=== PATIENT | male | born 1980 | race Caucasian/White ===

== ENCOUNTER 2016-07-28 16:41 | Inpatient (IN) | payer MEDICAID ==
[~2016-07-28] VITALS: Ht 172.7 cm; Wt 82.9 kg
[2016-07-28 17:32] LABS: BASOPHILS % (AUTO) 0.6 % (0.0-2.0); EOSINOPHILS % (AUTO) 0.9 % (1.0-6.0); HEMATOCRIT 48.8 % (41-53); HEMOGLOBIN 16.2 g/dL (13.5-17.5); LYMPHOCYTES % (AUTO) 20.9 % (22.0-44.0); MEAN CORPUSCULAR HEMOGLOBIN 30.1 pg (26.0-34.0); MEAN CORPUSCULAR HGB CONC 33.3 G/dL (31.0-37.0); MEAN CORPUSCULAR VOLUME 90 fL (80-100); MONOCYTES # (AUTO) 0.7 K/uL (0.1-1.0); MONOCYTES % (AUTO) 4.8 % (2.0-9.0); NEUTROPHILS # (AUTO) 10.3 K/uL (1.8-7.7); NEUTROPHILS % (AUTO) 72.8 % (40.0-70.0); PLATELET COUNT (AUTO) 174 K/uL (150-450); RED CELL DISTRIBUTION WIDTH 12.6 % (11.5-14.5); WHITE BLOOD COUNT (AUTO) 14.2 K/uL (4.5-11.0)
[2016-07-28 17:43] LABS: ANION GAP 10 mmol/L (8-16); CALCIUM, TOTAL 8.4 mg/dL (8.8-10.5); CARBON DIOXIDE 26 mmol/L (22-29); CHLORIDE 105 mmol/L (98-107); CREATININE 1.05 mg/dL (0.60-1.30); GLOMERULAR FILTR. RATE CALC > 60 mL/min (>60); POTASSIUM 4.2 mmol/L (3.5-5.1); SODIUM SERUM 141 mmol/L (136-145); UREA NITROGEN, BLOOD 9 mg/dL (7-18)
[2016-07-28 17:50] LABS: ALANINE AMINOTRANSFERASE 26 U/L (12-78); ALBUMIN 3.2 g/dL (3.4-5.0); ASPARTATE AMINOTRANSFERASE 22 U/L (15-37); BILIRUBIN,TOTAL 0.3 mg/dL (0.1-1.0)
[2016-07-28] MEDS ORDERED: DIVA500T35 PO (18:29)
[2016-07-28] MEDS ORDERED: VENL-193 PO (18:29)
[2016-07-28] MEDS ORDERED: BUSP15 PO (18:29)
[2016-07-28] MEDS ORDERED: MIRT15 PO (18:29)
[2016-07-28] MEDS ORDERED: VENL-67 PO (18:40)
[2016-07-28] MEDS ORDERED: ZOLPIDEM TARTRATE 10 MG TABLET PO PRN (20:30)
[2016-07-28] MEDS ORDERED: LORazepam 2 MG TABLET PO PRN (20:30)
[2016-07-28] MEDS ORDERED: HALOPERIDOL 5 MG TABLET PO PRN (20:30)
[2016-07-28 21:00] VITALS: BP 125/73
[2016-07-28] MEDS ORDERED: MIRTAZAPINE 15 MG TABLET PO SCH (21:00)
[2016-07-28] MEDS ORDERED: DIVALPROEX SODIUM 250 MG DR TABLET PO SCH (21:00)
[2016-07-28] MEDS: BusPIRone HCL 15 MG TABLET PO SCH (21:24)
[2016-07-29 01:40] VITALS: BP 132/66
[2016-07-29 07:30] VITALS: BP 115/71
[2016-07-29 08:00] VITALS: BP 115/71
[2016-07-29] MEDS ORDERED: VENLAFAXINE HCL 75 MG TABLET PO SCH (09:00)
[2016-07-29] MEDS: BusPIRone HCL 15 MG TABLET PO SCH ×2 (11:00→16:02)
[2016-07-29] MEDS ORDERED: MAGNESIUM HYDROXIDE SUSPENSION 30 ML UDCUP PO PRN (11:45)
[2016-07-29] MEDS ORDERED: HydrOXYzine PAMOATE 50 MG CAPSULE PO PRN (11:45)
[2016-07-29] MEDS ORDERED: TUBERCULIN, PURIFIED PROTEIN DERIVATIVE 5 TU/0.1 ML SYG ID ONE (11:45)
[2016-07-29] MEDS ORDERED: GuaiFENesin/D-METHORPHAN [SUGAR-FREE] 200-20MG/10 ML SYRUP UDCUP PO PRN (11:45)
[2016-07-29] MEDS ORDERED: PROMETHAZINE HCL 25 MG TABLET PO PRN (11:45)
[2016-07-29] MEDS ORDERED: MAG HYDROX/AL HYDROX/SIMETH ES 30 ML SUSPENSION UDCUP PO PRN (11:45)
[2016-07-29] MEDS ORDERED: LOPERAMIDE HCL 2 MG CAPSULE PO PRN (11:45)
[2016-07-29] MEDS: THIAMINE HCL 100 MG TABLET PO SCH (16:01)
[2016-07-29] MEDS: ACETAMINOPHEN 325 MG TABLET PO PRN (16:01)
[2016-07-29 16:03] VITALS: BP 105/63
[2016-07-29] MEDS: DIVALPROEX SODIUM 500 MG ER TABLET PO SCH (21:03)
[2016-07-29] MEDS: MIRTAZAPINE 15 MG TABLET PO SCH (21:03)
[2016-07-30 07:52] LABS: CREATINE KINASE, TOTAL 45 U/L (39-308); THYROID STIMULATING HORMONE 0.41 uIU/mL (0.36-3.74)
[2016-07-30 08:00] VITALS: BP 132/78
[2016-07-30] MEDS ORDERED: VENLAFAXINE HCL 75 MG ER CAPSULE PO SCH (09:00)
[2016-07-30] MEDS: MULTIVITAMINS WITH MINERALS, THERAPEUTIC TABLET PO SCH (09:59)
[2016-07-30] MEDS: BusPIRone HCL 15 MG TABLET PO SCH ×2 (09:59→16:28)
[2016-07-30] MEDS: THIAMINE HCL 100 MG TABLET PO SCH ×2 (09:59→16:29)
[2016-07-30] MEDS: FOLIC ACID 1 MG TABLET PO SCH (09:59)
[2016-07-30] MEDS: ACETAMINOPHEN 325 MG TABLET PO PRN (19:27)
[2016-07-30] MEDS: DIVALPROEX SODIUM 500 MG ER TABLET PO SCH (20:33)
[2016-07-30] MEDS: MIRTAZAPINE 15 MG TABLET PO SCH (20:33)
[2016-07-31 08:00] VITALS: BP 115/78
[2016-07-31] MEDS ORDERED: VENLAFAXINE HCL 75 MG ER CAPSULE PO SCH (09:00)
[2016-07-31] MEDS: BusPIRone HCL 15 MG TABLET PO SCH ×2 (09:49→16:20)
[2016-07-31] MEDS: FOLIC ACID 1 MG TABLET PO SCH (09:50)
[2016-07-31] MEDS: THIAMINE HCL 100 MG TABLET PO SCH ×2 (09:50→16:20)
[2016-07-31] MEDS: MULTIVITAMINS WITH MINERALS, THERAPEUTIC TABLET PO SCH (09:50)
[2016-07-31] MEDS: NALTREXONE HCL 50 MG TABLET PO SCH (09:51)
[2016-07-31 10:32] LABS: HEPATITIS Bs ANTIGEN SCREEN P Negative (Negative); HEPATITIS C AB SCREEN <0.1 s/co ratio (0.0-0.9)
[2016-07-31 16:21] VITALS: BP 116/72
[2016-07-31] MEDS: DIVALPROEX SODIUM 500 MG ER TABLET PO SCH (20:16)
[2016-07-31] MEDS: ACETAMINOPHEN 325 MG TABLET PO PRN (20:16)
[2016-07-31] MEDS: MIRTAZAPINE 15 MG TABLET PO SCH (20:16)
[2016-07-31 20:17] VITALS: BP 114/69
[2016-08-01 08:00] VITALS: BP 139/81
[2016-08-01] MEDS: BusPIRone HCL 15 MG TABLET PO SCH ×2 (09:06→16:09)
[2016-08-01] MEDS: VENLAFAXINE HCL 75 MG ER CAPSULE PO SCH (09:06)
[2016-08-01] MEDS: THIAMINE HCL 100 MG TABLET PO SCH ×2 (09:06→16:09)
[2016-08-01] MEDS: FOLIC ACID 1 MG TABLET PO SCH (09:06)
[2016-08-01] MEDS: MULTIVITAMINS WITH MINERALS, THERAPEUTIC TABLET PO SCH (09:06)
[2016-08-01] MEDS: NALTREXONE HCL 50 MG TABLET PO SCH (09:06)
[2016-08-01 20:01] VITALS: BP 131/79
[2016-08-01] MEDS: MIRTAZAPINE 30 MG TABLET PO SCH (20:11)
[2016-08-01] MEDS: DIVALPROEX SODIUM 500 MG ER TABLET PO SCH (20:11)
[2016-08-02 08:00] VITALS: BP 135/74
[2016-08-02] MEDS: MULTIVITAMINS WITH MINERALS, THERAPEUTIC TABLET PO SCH (08:25)
[2016-08-02] MEDS: NALTREXONE HCL 50 MG TABLET PO SCH (08:25)
[2016-08-02] MEDS: VENLAFAXINE HCL 75 MG ER CAPSULE PO SCH (08:25)
[2016-08-02] MEDS: FOLIC ACID 1 MG TABLET PO SCH (08:25)
[2016-08-02] MEDS: BusPIRone HCL 15 MG TABLET PO SCH ×2 (08:25→17:01)
[2016-08-02] MEDS: THIAMINE HCL 100 MG TABLET PO SCH ×2 (08:25→17:01)
[2016-08-02 16:29] VITALS: BP 129/76
[2016-08-02] MEDS: MIRTAZAPINE 30 MG TABLET PO SCH (20:21)
[2016-08-02] MEDS: DIVALPROEX SODIUM 500 MG ER TABLET PO SCH (20:21)
[2016-08-03] MEDS: FOLIC ACID 1 MG TABLET PO SCH (09:02)
[2016-08-03] MEDS: MULTIVITAMINS WITH MINERALS, THERAPEUTIC TABLET PO SCH (09:03)
[2016-08-03] MEDS: NALTREXONE HCL 50 MG TABLET PO SCH (09:03)
[2016-08-03] MEDS: VENLAFAXINE HCL 75 MG ER CAPSULE PO SCH (09:03)
[2016-08-03] MEDS: BusPIRone HCL 15 MG TABLET PO SCH ×2 (09:04→17:43)
[2016-08-03] MEDS: THIAMINE HCL 100 MG TABLET PO SCH ×2 (09:05→17:43)
[2016-08-03 09:17] VITALS: BP 125/75
[2016-08-03 19:00] VITALS: BP 124/71
[2016-08-03] MEDS: DIVALPROEX SODIUM 500 MG ER TABLET PO SCH (20:10)
[2016-08-03] MEDS: MIRTAZAPINE 30 MG TABLET PO SCH (20:11)
[2016-08-04] MEDS ORDERED: NALT50 PO (08:50)
[2016-08-04 08:57] VITALS: BP 120/73
[2016-08-04] MEDS: MULTIVITAMINS WITH MINERALS, THERAPEUTIC TABLET PO SCH (10:22)
[2016-08-04] MEDS: BusPIRone HCL 15 MG TABLET PO SCH (10:22)
[2016-08-04] MEDS: NALTREXONE HCL 50 MG TABLET PO SCH (10:22)
[2016-08-04] MEDS: VENLAFAXINE HCL 75 MG ER CAPSULE PO SCH (10:23)
[2016-08-04] MEDS: FOLIC ACID 1 MG TABLET PO SCH (10:23)
[2016-08-04] MEDS: THIAMINE HCL 100 MG TABLET PO SCH (10:23)
== END 2016-08-04 11:30 | disposition home or self-care (01) | DRG 751 ==
LOC: EMS 16:45 → 3EI 21:10
PROVIDERS: ADMIT Psychiatry & Neurology Psychiatry; ATTEND Psychiatry & Neurology Psychiatry
DX: F33.2 Major depressive disorder, recurrent severe without psychotic features (principal); R45.851 Suicidal ideations; Z91.14 Patient's other noncompliance with medication regimen; D72.829 Elevated white blood cell count, unspecified; G89.29 Other chronic pain; M54.9 Dorsalgia, unspecified; M25.519 Pain in unspecified shoulder; F17.210 Nicotine dependence, cigarettes, uncomplicated; F12.90 Cannabis use, unspecified, uncomplicated; Z79.899 Other long term (current) drug therapy; Z71.6 Tobacco abuse counseling; Z59.0 Homelessness
CPT/HCPCS: 80074; 82306; 83036; 84443; 99285; 99406; G0480